=== PATIENT | female | born 1995 | race African-American/Black ===

== ENCOUNTER 2016-12-28 14:07 | Emergency (ER) | payer MEDICAID ==
[~2016-12-28] VITALS: Ht 172.7 cm; Wt 63.0 kg
[2016-12-28] MEDS ORDERED: ONDANSETRON HCL 4MG/2ML VIAL IV STA (19:08)
[2016-12-28] MEDS ORDERED: SODIUM CHLORIDE 0.9% 1,000 ML IV ONE (19:08)
[2016-12-28] MEDS ORDERED: KETOROLAC 30MG/ML VIAL IV STA (19:08)
[2016-12-28 19:30] LABS: CLARITY URINE CLOUDY (CLEAR); COLOR URINE DARK YELLOW (YELLOW); GLUCOSE URINE NEGATIVE (NEGATIVE); KETONES URINE TRACE (NEGATIVE); LEUKOCYTE ESTERASE URINE NEGATIVE (NEGATIVE); NITRITE URINE POSITIVE (NEGATIVE); OCCULT BLOOD URINE NEGATIVE (NEGATIVE); PROTEIN URINE 2+ (NEGATIVE); SPECIFIC GRAVITY URINE 1.031 (1.005-1.030)
[2016-12-28 19:43] LABS: BASOPHILS % 0.8 % (0.0-2.0); HEMATOCRIT. 39.1 % (36.0-48.0); HEMOGLOBIN. 13.3 g/dL (12.0-16.0); LYMPHOCYTES % 50.6 % (20.0-50.0); MEAN CORPUSCULAR VOLUME 88.2 fL (81.0-99.0); MEAN PLATELET VOLUME 8.6 fl (7.4-10.4); NEUTROPHILS % 33.6 % (40.0-76.0); PLATELET 212 x1000/uL (130-400); RED BLOOD CELL COUNT 4.43 mill/uL (4.2-5.4); RED CELL DISTRIBUTION WIDTH 13.4 % (11.6-14.6)
[2016-12-28 19:48] LABS: CHLORIDE 103 mEq/L (98-107)
[2016-12-28 19:50] LABS: PROTHROMBIN TIME 10.9 sec (9.4-11.6)
[2016-12-28 19:56] LABS: CARBON DIOXIDE 26 mEq/L (21-32)
[2016-12-28 20:05] LABS: HCG SCREEN NEGATIVE
[2016-12-28 22:18] VITALS: BP 115/78
== END 2016-12-28 22:42 | disposition home or self-care (01) ==
LOC: ER 14:07
DX: N83.202 Unspecified ovarian cyst, left side (principal); N83.201 Unspecified ovarian cyst, right side; N39.0 Urinary tract infection, site not specified; R11.2 Nausea with vomiting, unspecified
CPT/HCPCS: 36415; 76830; 76856; 80053; 81001; 83690; 84703; 85025; 85610; 96361; 96374; 96375; 99285; J1885; J2405; J7030; Z7610

== ENCOUNTER 2017-04-30 07:19 | Emergency (ER) | payer MEDICAID ==
[~2017-04-30] VITALS: Ht 175.3 cm; Wt 64.0 kg
[2017-04-30] MEDS ORDERED: KETOROLAC 30MG/ML VIAL IV STA (07:47)
[2017-04-30] MEDS ORDERED: SODIUM CHLORIDE 0.9% 1,000 ML IV ONE (07:47)
[2017-04-30] MEDS ORDERED: DEXAMETHASONE 10 MG/ML VIAL IV ONE ×2 (08:00→09:15)
[2017-04-30] MEDS ORDERED: CEFTRIAXONE SODIUM 1 G/VIAL IM ONE (08:00)
[2017-04-30] MEDS ORDERED: DEXAMETHASONE 4MG/ML 1ML VIAL IM ONE (08:30)
[2017-04-30] MEDS ORDERED: KETOROLAC 60MG/2ML VIAL IM ONE (08:30)
[2017-04-30] MEDS ORDERED: CLINDAMYCIN 600 MG in DEXTROSE 5% WATER 50 ML IV ONE (09:15)
[2017-04-30] MEDS ORDERED: CEFTRIAXONE 1 G PREMIX 50 ML IV ONE (09:15)
[2017-04-30] MEDS ORDERED: KETOROLAC 30MG/ML VIAL IV ONE (09:15)
[2017-04-30] MEDS ORDERED: IOHEXOL-300 100 ML BOTTLE ONE (09:42)
[2017-04-30] MEDS ORDERED: CLINDAMYCIN 600MG PREMIX 50 ML IV ONE (10:30)
[2017-04-30 11:49] LABS: BASOPHILS % 0.3 % (0.0-2.0); EOSINOPHILS % 0.1 % (0.0-5.0); HEMATOCRIT. 38.4 % (36.0-48.0); HEMOGLOBIN. 12.8 g/dL (12.0-16.0); LYMPHOCYTES % 7.7 % (20.0-50.0); MEAN CORPUSCULAR HEMOGLOBIN 29.4 pg (28.0-32.0); MEAN PLATELET VOLUME 8.5 fl (7.4-10.4); MONOCYTES % 2.8 % (2.0-8.0); NEUTROPHILS % 89.1 % (40.0-76.0); PLATELET 233 x1000/uL (130-400); RED BLOOD CELL COUNT 4.36 mill/uL (4.2-5.4); RED CELL DISTRIBUTION WIDTH 13.1 % (11.6-14.6)
[2017-04-30 11:55] LABS: CHLORIDE 102 mEq/L (98-107)
[2017-04-30 12:14] LABS: HCG SCREEN NEGATIVE
[2017-04-30 16:45] VITALS: BP 107/70
== END 2017-04-30 17:30 | disposition short-term general hospital (02) ==
LOC: ER 07:35
DX: J36 Peritonsillar abscess (principal); K12.2 Cellulitis and abscess of mouth
CPT/HCPCS: 36415; 70491; 80053; 84703; 85025; 87070; 87430; 96365; 96367; 96375; 99285; J0696; J1100; J1885; J3490; J7030; Q9967; J7060